=== PATIENT | male | born 1970 | race Caucasian/White ===

== ENCOUNTER → 2021-01-20 11:14 | Outpatient (BNVA) | payer OTHER, SELFPAY | PROVIDERS: PCP Internal Medicine; Visit Provider Physician Assistant | DX: S00.01XA Abrasion of scalp, initial encounter (principal); S53.491A Other sprain of right elbow, initial encounter; W31.83XA Contact with special construction vehicle in stationary use, initial encounter | CPT/HCPCS: 73080; 99204 ==

== ENCOUNTER → 2021-01-25 11:05 | Outpatient (BNVA) | payer OTHER, SELFPAY | PROVIDERS: PCP Internal Medicine; Visit Provider Physician Assistant | DX: S59.901A Unspecified injury of right elbow, initial encounter (principal); S00.01XA Abrasion of scalp, initial encounter; T14.8XXA Other injury of unspecified body region, initial encounter; V89.0XXA Person injured in unspecified motor-vehicle accident, nontraffic, initial encounter | CPT/HCPCS: 99213 ==

== ENCOUNTER 2023-11-28 14:37 | Outpatient (REF) | payer OTHER, SELFPAY ==
[2023-11-28 15:20] LABS: MANUAL DIFF FLAG NO
[2023-11-28 15:46] LABS: Basophils Absolute Auto 0.1 X10*3/uL (0.0-0.2); Basophils Percent Auto 0.9 % (0-2); Eosinophils Absolute Auto 0.2 X10*3/uL (0.0-0.4); Eosinophils Percent Auto 1.6 % (0-4); Hematocrit 47.7 % (42.0-52.0); Hemoglobin 15.8 g/dl (14.0-18.0); Imm Gran Abs Auto 0.09 X10*3/uL (0.00-0.03); Lymphocytes Absolute Auto 2.4 X10*3/uL (1.2-4.9); Lymphocytes Percent Auto 26.8 % (20-40); Mean Corpuscular HGB Conc 33.1 g/dl (31.0-36.0); Mean Corpuscular Hemoglobin 29.7 pg (27.0-33.0); Mean Corpuscular Volume 89.7 fL (80.0-98.0); Mean Platelet Volume 9.2 fL (9.4-12.4); Monocytes Absolute Auto 0.8 X10*3/uL (0.1-1.2); Monocytes Percent Auto 9.2 % (2-11); Neutrophils Absolute Auto 5.5 x10*3/uL (2.0-8.3); Neutrophils Percent Auto 60.5 % (45-73); Platelet Count 337 X10*3/uL (160-400); Red Blood Count 5.32 X10*6/uL (4.60-5.80); Red Cell Distribution Width 12.5 % (11.0-16.0); White Blood Count 9.1 X10*3/uL (4.8-10.8)
[2023-11-29 23:13] LABS: Class Alternaria alternata 0; Class Aspergillus fumigatus 0; Class Bermuda Grass 0; Class Birch 0; Class Cat Dander 0; Class Cladosporium herbarum 0; Class Cockroach 0; Class Common Ragweed 0; Class Cottonwood 0; Class Derm. pterony 0/1; Class Dermatophagoides farinae 0/1; Class Dog Dander 0; Class Elm 0; Class Maple Box Elder 0; Class Mountain Cedar 0; Class Mouse Urine Protein 0; Class Mugwort 0; Class Oak 0; Class Penicillium crysogenum 0; Class Rough Pigweed 0; Class Sheep Sorrel 0; Class Sycamore 0; Class Timothy Grass 0; Class Walnut Tree 0; Class White Ash 0; Class White Mulberry 0; D001 IgE D pteronyssinus 0.24 kU/L; E001 - IgE Cat Dander <0.10 kU/L; E005 - IgE Dog Dander <0.10 kU/L; E072-IgE Mouse Urine <0.10 kU/L; G002 IgE Bermuda Grass <0.10 kU/L; G006 - IgE Timothy Grass <0.10 kU/L; I006-IgE Cockroach, German <0.10 kU/L; Immunoglobulin E 10 kU/L (<OR=114); M001 IgE Penicillium chrysogen <0.10 kU/L; M002 - IgE Cladosporium herbar <0.10 kU/L; M003 - IgE Aspergillus fumigat <0.10 kU/L; M006 - IgE Alternaria alternat <0.10 kU/L; T001 IgE Maple/Box Elder <0.10 kU/L; T003 IgE Common Silver Birch <0.10 kU/L; T006 - IgE Cedar, Mountain <0.10 kU/L; T007 - IgE Oak, White <0.10 kU/L; T008 IgE Elm, American <0.10 kU/L; T010 - IgE Walnut <0.10 kU/L; T011 - IgE Maple Leaf Sycamore <0.10 kU/L; T014 - IgE Cottonwood <0.10 kU/L; T015 - IgE Ash, White <0.10 kU/L; T070 - IgE White Mulberry <0.10 kU/L; W001 - IgE Ragweed, Short <0.10 kU/L; W006 - IgE Mugwort <0.10 kU/L; W014 IgE Pigweed, Common <0.10 kU/L; W018 IgE Sheep Sorrel <0.10 kU/L
== END 2023-11-28 14:38 | disposition home or self-care (01) ==
LOC: HO.LAB 14:37
PROVIDERS: PCP Internal Medicine; Visit Provider Internal Medicine Pulmonary Disease
DX: R05.9 Cough, unspecified (principal); Z91.09 Other allergy status, other than to drugs and biological substances; Z77.090 Contact with and (suspected) exposure to asbestos
CPT/HCPCS: 36415; 82785; 85025; 86003; 99202

== ENCOUNTER 2023-11-28 14:37 | Outpatient (AMB) | payer OTHER, SELFPAY ==
[2023-11-28 14:41] VITALS: BP 132/78; PULSE 75; O2SAT 94; BMI 38.6
--- NOTE | 2023-11-28 14:41 | MHC.OFFVIS ---
Vital Signs 11/28/23 14:41 Height 6 ft Weight 284 lb 6.341 oz BMI 38.6 BP 132/78 Blood Pressure Location Rt brachial Position Sitting Pulse 75 Pulse Source Doppler Pulse Oximetry (%) 94 Oxygen Delivery Method Room Air Intake Visit Reasons: exposure to asbestos Allergies typhoid vaccine Allergy (Severe, Verified 11/28/23 14:46) Unknown codeine Adverse Reaction (Intermediate, Verified 11/28/23 14:46) rash HPI HPI exposure to asbestos: Details: 53-year-old gentleman, nonsmoker, with underlying history exposure to asbestos while in [employer] and chronic cough ongoing since 2016 productive of clear sputum in the morning referred for evaluation and management of his pulmonary issues. Patient denies any changes in his cough through the day, with body position changes, or after meals. He does have family history of COPD in his father who was a smoker. Patient does have dog as a pet. He also has prior history of receiving allergen injections approximately 10 years prior. He has had recent normal CT chest and pulmonary function test at [facility]. he denies any history of significant acid reflux. Review of Systems Const Denies daytime sleepiness, Denies excessive sweating, Denies fatigue, Denies fever(s), Denies lethargy, Denies malaise, Denies night sweats, Denies snoring and Denies weight loss Eyes Denies blurry vision and Denies itchy eyes ENT Denies nasal congestion, Denies post nasal drip, Denies sinus pain, Denies sinus pressure and Denies other ( Thrush) Card Denies chest pain, Denies pedal edema, Denies dyspnea, Denies orthopnea and Denies paroxysmal nocturnal dyspnea Resp Denies cough, Denies hemoptysis, Denies excessive phlegm production, Denies dyspnea, Denies snoring and Denies wheezing GI Denies abdominal pain and Denies heartburn Musc Denies myalgias, Denies arthralgias and Denies joint swelling Skin/Breast Denies rash Neuro Denies memory loss and Denies seizure-like activity Psych Denies abnormal sleep pattern, Denies anxiety and Denies memory loss Endo Denies excessive sweating, Denies fatigue and Denies heat intolerance Hoang/Lymph Denies easy bruising Aller/Immun Denies itchy eyes, Denies seasonal rhinorrhea and Denies wheezing Physical Exam Vital Signs: Last Vital Signs Pulse 75 11/28/23 14:41 BP 132/78 11/28/23 14:41 Pulse Ox 94 11/28/23 14:41 Oxygen Delivery Method Room Air 11/28/23 14:41 BMI result Body Mass Index 38.6 Const General: no acute distress and alert Nutritional Appearance: obese Orientation/consciousness: Other orientation findings ( oriented) HEENT Head: Yes atraumatic Eyes General: appearance normal, both eyes and all related structures Sclerae: sclerae normal EOM: EOMs intact bilaterally Neck Neck: Yes supple Lymphatic: no lymphadenopathy noted Resp Effort & Inspection: normal respiratory effort and no use of accessory muscles Auscultation: clear to auscultation bilaterally Cardio Rate: regular rate Rhythm: regular rhythm Heart sounds: no gallops, no murmurs and no rubs Skin General skin exam: other ( warm) Extrem General: No clubbing, No cyanosis and No edema Assessment & Plan Assessment & Plan (1) Environmental allergies: Code(s): Z91.09 - Other allergy status, other than to drugs and biological substances Category: Medical Plan: Will obtain IgE level, CBC with differential, and RAST panel for further evaluation. (2) Cough: Code(s): R05.9 - Cough, unspecified Category: Medical Plan: Unclear etiology, may have infectious and/or inflammatory component. Will obtain sputum culture. Orders: Orders Complete Blood Count Auto Diff Today Z91.09 - Other allergy status, other than to drugs and biological substances Resp Allergy Profile Region I Today R05.9 - Cough, unspecified, Z91.09 - Other allergy status, other than to drugs and biological substances Sputum Cult + Gram stain Today R05.9 - Cough, unspecified Coding Level of Care Code New Pt Level 4 (96439) Diagnoses Environmental allergies Z91.09 Cough R05.9
== END 2023-11-28 15:02 | disposition home or self-care (01) ==
PROVIDERS: PCP Internal Medicine; Visit Provider Internal Medicine Pulmonary Disease
DX: Z91.09 Other allergy status, other than to drugs and biological substances (principal); R05.9 Cough, unspecified
CPT/HCPCS: 99204

== ENCOUNTER 2023-11-30 12:13 | Outpatient (REF) | payer OTHER, SELFPAY | END 2023-11-30 12:14 | disposition home or self-care (01) | LOC: HO.LNP 12:13 | PROVIDERS: Visit Provider Internal Medicine Pulmonary Disease | DX: R05.9 Cough, unspecified (principal) | CPT/HCPCS: 87070; 87205 ==

== ENCOUNTER 2024-01-03 08:52 | Outpatient (AMB) | payer OTHER, SELFPAY ==
[2024-01-03 08:54] VITALS: BP 124/78; PULSE 82; O2SAT 95; BMI 37.7
--- NOTE | 2024-01-03 08:54 | MHC.OFFVIS ---
Vital Signs 01/03/24 08:54 Height 6 ft Weight 277 lb 12.519 oz BMI 37.7 BP 124/78 Blood Pressure Location Rt brachial Position Sitting Pulse 82 Pulse Source Doppler Pulse Oximetry (%) 95 Oxygen Delivery Method Room Air Intake Visit Reasons: Asbestosis Allergies typhoid vaccine Allergy (Severe, Verified 11/28/23 14:46) Unknown codeine Adverse Reaction (Intermediate, Verified 11/28/23 14:46) rash HPI HPI Asbestosis: Details: 53-year-old gentleman, nonsmoker, with underlying history exposure to asbestos and chronic cough ongoing since 2016 productive of clear sputum in the morning referred for evaluation and management of his pulmonary issues. Patient denies any changes in his cough through the day, with body position changes, or after meals. He does have family history of COPD in his father who was a smoker. Patient does have dog as a pet. He also has prior history of receiving allergen injections approximately 10 years prior. He has had recent normal CT chest and pulmonary function test at [facility]. he denies any history of significant acid reflux. after the last office visit patient had sputum culture, however it had oropharyngeal contamination; he also has completed immunologic testing and does have underlying allergies to dust mites. Patient tried Wixela, however he did not have significant symptomatic response and stopped using it. Review of Systems Const Denies daytime sleepiness, Denies excessive sweating, Denies fatigue, Denies fever(s), Denies lethargy, Denies malaise, Denies night sweats, Denies snoring and Denies weight loss Eyes Denies blurry vision and Denies itchy eyes ENT Denies nasal congestion, Denies post nasal drip, Denies sinus pain, Denies sinus pressure and Denies other ( Thrush) Card Denies chest pain, Denies pedal edema, Denies dyspnea, Denies orthopnea and Denies paroxysmal nocturnal dyspnea Resp Reports cough, Denies hemoptysis, Denies excessive phlegm production, Denies dyspnea, Denies snoring and Denies wheezing GI Denies abdominal pain and Denies heartburn Musc Denies myalgias, Denies arthralgias and Denies joint swelling Skin/Breast Denies rash Neuro Denies memory loss and Denies seizure-like activity Psych Denies abnormal sleep pattern, Denies anxiety and Denies memory loss Endo Denies excessive sweating, Denies fatigue and Denies heat intolerance Hoang/Lymph Denies easy bruising Aller/Immun Denies itchy eyes, Denies seasonal rhinorrhea and Denies wheezing Physical Exam Vital Signs: Last Vital Signs Pulse 82 01/03/24 08:54 BP 124/78 01/03/24 08:54 Pulse Ox 95 01/03/24 08:54 Oxygen Delivery Method Room Air 01/03/24 08:54 BMI result Body Mass Index 37.7 Const General: no acute distress and alert Nutritional Appearance: obese Orientation/consciousness: Other orientation findings ( oriented) HEENT Head: Yes atraumatic Eyes General: appearance normal, both eyes and all related structures Sclerae: sclerae normal EOM: EOMs intact bilaterally Neck Neck: Yes supple Lymphatic: no lymphadenopathy noted Resp Effort & Inspection: normal respiratory effort and no use of accessory muscles Auscultation: clear to auscultation bilaterally Cardio Rate: regular rate Rhythm: regular rhythm Heart sounds: no gallops, no murmurs and no rubs Skin General skin exam: other ( warm) Extrem General: No clubbing, No cyanosis and No edema Assessment & Plan Assessment & Plan (1) Cough: Code(s): R05.9 - Cough, unspecified Category: Medical (2) Environmental allergies: Code(s): Z91.09 - Other allergy status, other than to drugs and biological substances Category: Medical Plan Overall unclear etiology. No response to inhaled corticosteroid/long-acting beta agonist. Will stop Wixela. Immunologic workup does show allergies to dust mites, will start on empiric Singulair. If fails to improve, will consider further immunologic options. Medications: New montelukast (Singulair) 10 mg PO DAILY 30 tabs 6RF Coding Level of Care Code Est Pt Level 4 (81766) Diagnoses Cough R05.9 Environmental allergies Z91.09
== END 2024-01-03 09:07 | disposition home or self-care (01) ==
PROVIDERS: PCP Internal Medicine; Visit Provider Internal Medicine Pulmonary Disease
DX: R05.9 Cough, unspecified (principal); Z91.09 Other allergy status, other than to drugs and biological substances
CPT/HCPCS: 99214

== ENCOUNTER → 2024-01-03 08:52 | Outpatient (BNVA) | payer OTHER, SELFPAY | PROVIDERS: PCP Internal Medicine; Visit Provider Internal Medicine Pulmonary Disease | DX: R05.9 Cough, unspecified (principal); Z91.09 Other allergy status, other than to drugs and biological substances | CPT/HCPCS: 99212 ==